=== PATIENT | male | born 1950 | race Caucasian/White ===

== ENCOUNTER 2022-08-15 09:25 | Emergency (ER) | payer MEDICARE, BC, SELFPAY ==
[2022-08-15 09:30] VITALS: BP 137/96; PULSE 79; RESP 16; TEMP 36.6; O2SAT 99; BMI 20.9
--- NOTE | 2022-08-15 09:50 | ED.GENADULT ---
HPI - General Adult General Chief complaint: Dental/Oral/Mouth Injury/Pain Stated complaint: Sore on roof of mouth Time Seen by Provider: 08/15/22 09:29 History of Present Illness HPI narrative: Patient is a pleasant 72 white male whose brother at age 38 of mouth cancer, and he had a lesion on the roof of his mouth for the last 5-7 days it has been painful. He wanted this checked. No other specific complaints. No fevers chills or other issues. He is generally very healthy Related Data Home Medications Medication Instructions Recorded Confirmed No Known Home Medications 08/15/22 08/15/22 Allergies Allergy/AdvReac Type Severity Reaction Status Date / Time No Known Drug Allergies Allergy Verified 08/15/22 09:34 Review of Systems Status of ROS: Reports: 6 or more systems reviewed and unremarkable except as noted in History and below PFSH PFS Social History Smoking Status: Never smoker Do you use any of these nicotine containing products: None Second hand tobacco smoke exposure: No How often do you have a drink containing alcohol: monthly or less AUDIT-C Alcohol total score: 1 Non-prescribed substance use: denies use service: No Exam Narrative: Exam Narrative: Objective: Vital signs show slightly elevated diastolic pressure He has got an aphthous ulcer on the roof of his mouth on the right side about half by 0.5 cm. Rest of the mouth is clear Const: Vital Signs, click to edit/add: Vital Signs - 24 hr 08/15/22 09:30 Temperature 97.9 F Pulse Rate [Pulse Oximeter] 79 Respiratory Rate 16 Blood Pressure [Le ft Upper Arm] 137/96 H Pulse Oximetry 99 Oxygen Delivery Me thod Room Air Course Vital Signs Vital signs: Initial Vital Signs Temperature 97.9 F 08/15/22 09:30 Temperature Source Temporal Artery Scan 08/15/22 09:30 Pulse Rate 79 08/15/22 09:30 Respiratory Rate 16 08/15/22 09:30 Blood Pressure 137/96 H 08/15/22 09:30 Blood Pressure Mean 109 H 08/15/22 09:30 Blood Pressure Position Sitting 08/15/22 09:30 Pulse Oximetry 99 08/15/22 09:30 Oxygen Delivery Method Room Air 08/15/22 09:30 Vital Signs Temperature 97.9 F 08/15/22 09:30 Pulse Rate 79 08/15/22 09:30 Respiratory Rate 16 08/15/22 09:30 Blood Pressure 137/96 H 08/15/22 09:30 Pulse Oximetry 99 08/15/22 09:30 Oxygen Delivery Method Room Air 08/15/22 09:30 Temperature 97.9 F 08/15/22 09:30 Pulse Rate 79 08/15/22 09:30 Respiratory Rate 16 08/15/22 09:30 Blood Pressure 137/96 H 08/15/22 09:30 Pulse Oximetry 99 08/15/22 09:30 Oxygen Delivery Method Room Air 08/15/22 09:30 Medical Decision Making MDM Narrative Medical decision making narrative: Patient has a painful ulcer on the roof of his mouth, appears to be an aphthous type ulcer. I would recommend observation over the next 2 weeks if it persists recommend ENT follow-up for potential biopsy and reassessment. He was comfortable this will follow up as directed. Discharge Plan Discharge Clinical Impression: Aphthous ulcer Patient Disposition: Home, Self-Care Condition: Stable Additional Instructions: Observe, diet as tolerated, Tylenol Advil as needed, recheck in 2 weeks with ENT if not improving. Activity Level: No Restrictions Discharge Diet: Regular Prescriptions: No Action No Known Home Medications Stand Alone Forms: [employer] Info Instructions
== END 2022-08-15 10:05 | disposition home or self-care (01) ==
LOC: ED 10:05
PROVIDERS: Emergency Provider Family Medicine
DX: K12.0 Recurrent oral aphthae (principal)
CPT/HCPCS: 99282; 99283

== ENCOUNTER 2024-06-12 11:41 | Emergency (ER) | payer MEDICARE, BC, SELFPAY ==
--- OUTSIDE RECORDS SUMMARY | 2024-06-12 11:43 | XMS_ITS | Clinical Summary ---
Author Organization [facility] Address [address] [place] [address] Care Team Providers Care Spring Assembler Supervisor Name Role Phone Hong Freitas DO Primary Care Provider [phone] Allergies No known active allergies Medications No known medications Active Problems Problem Noted Date Diagnosed Date Fracture of great toe, right, closed 11/09/2013 Diverticulosis Hemorrhoids Immunizations Immunization Administration Dates Next Due COVID-19 vaccine (Prior Knowledge 30mcg/0.3mL) P F MDV 08/06/2020,07/16/2020 Td (Age >=7 Years) 06/12/2003 Family History Medical History Relation Name Comments Cancer Brother 1 jaw and tongue Alzheimer's disease Father COPD Mother smoking Relation Name Status Comments Brother 1 (Age 38) Brother 2 Alive Brother 3 Alive Father (Age 83) Mother (Age 83) Social History Tobacco Use Types Packs/Day Years Used Date Smoking Tobacco: Never Smokeless Tobacco: Never Tobacco Cessation:Counseling Given: Yes Alcohol Use Standard Drinks/Week Comments Yes 0 (1 standard drink = 0.6 oz pur e alcohol) rare PHQ-2 Answer Date Recorded PHQ-2 Score 0 05/03/2018 Social Connections Answer Date Recorded Frequency of Communication with Friends and Fami ly Not on file 05/20/2021 Sex and Gender Information Value Date Recorded Sex Assigned at Not on file Legal Sex 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 Gender Identity Not on file Sexual Orientation Not on file 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 Not on file Not on file Obstetrics History Last Filed Vital Signs Vital Sign Reading Time Taken Comments Blood Pressure 130/87 10/19/2021 1:41 PM CDT Pulse 62 10/19/2021 1:41 PM CDT Temperature 36.7 C (98 F) 10/19/2021 1:41 PM CDT Respiratory Rate 14 10/19/2021 1:41 PM CDT Oxygen Saturation 98% 10/19/2021 1:41 PM CDT Inhaled Oxygen Concentration - - Weight 68.5 kg (151 lb) 05/20/2021 1:29 PM CDT Height 180.3 cm (5' 11) 03/02/2018 11:36 AM WEB DESIGNER Body Mass Index 21.06 03/02/2018 11:36 AM WEB DESIGNER Plan of Treatment Health Maintenance Due Date Last Done Comments Tdap 1961 Hepatitis C screening for ag e 18-79 1968 Pneumococcal series for age 50+ (1 of 1 - PCV) 2000 Zoster (shingles) series for age 50+ (1 of 2) 2000 Tetanus booster 06/11/2013 06/12/2003 Medicare Wellness for age 65+ 08/05/2015 BMI (ht and wt on same day) for age 18+ 03/02/2019 03/02/2018, 11/23/2016, 02/20/2016, Additional history exists Depression screening for age 12+ 03/02/2019 03/02/2018, 02/20/2016, 07/01/2015 Lipids for age 45-75 08/11/2019 08/10/2014, 06/18/19 12 Colonoscopy through age 75 08/29/201908/28, 08/28/2014, 12/17/2002 (Completed outside of [facility]) COVID-19 vaccine series (3 - 2023- season) 2023 08/06/2020, 07/16/2020 Influenza Vaccine (Season Ended) 2024 RSV vaccine for adults or (1 - 1-dose 75+ series) 2025 Procedures Procedure Name Priority Date/Time Associated Diagnosis Comments COLONOSCOPY 08/28/2014 10:36 AM CDT LIPID PANEL Routine 08/10/2014 9:57 AM CDT Routine general medical examination at a health care facility from Last 3 Months or Most Recently Relevant to Health Maintenance Results * COLONOSCOPY (08/28/2014 10:36 AM CDT) 08/28/2014 10:3 6 AM CDT Narrative 08/28/2014 10:36 AM CDT Endoscopy Patient Name: Alexis Mortensen Procedure Date: 08/28/2014 Gender: Male Date of : 1950 Admit Type: Outpatient Procedure: Colonoscopy Proceduralist: Giorgi Massey MD Referring MD: Abnre Silvestre Indications/Pre-Op Diagnosis: Colon cancer screening in patient at increased risk: Family history of colon polyps Medications: None Procedure Description: The patient had risks, benefits and alternatives explained to and gave informed consent. The patient had a stable cardiopulmonary status and judged an adequate candidate for conscious sedation. The endoscope was passed through the anus and advanced to the cecum, identified by appendiceal orifice and ileocecal valve. The colonoscopy was performed without difficulty. The patient tolerated the procedure well. The quality of the bowel preparation was good. Complications: No immediate complications. Estimated Blood Loss & Specimen: Estimated blood loss was minimal. Specimen collected: Yes and sent to Laboratory Findings: A few small-mouthed diverticula were found in the sigmoid colon and in the descending colon. A 3 mm polyp was found in the transverse colon. The polyp was sessile. The polyp was removed with a hot biopsy forceps. Resection and retrieval were complete. The exam was otherwise without abnormality. Impressions/Post-Op Diagnosis: - Diverticulosis in the sigmoid colon and in the descending colon. - One 3 mm polyp in the transverse colon. Resected and retrieved. - The examination was otherwise normal. Recommendation: - Follow up colonoscopy recommendations will depend on the pathology of the polyp. - A letter will be sent to the patient with pathology results and future screening colonoscopy recommendations. - High fiber diet daily. - Use citrus or orange sugared Metamucil one tablespoon PO daily indefinitely. Giorgi Massey MD 08/28/2014 11:21 AM This report has been signed electronically. Note Initiated On: 08/28/2014 10:36 AM Total Procedure Duration Time 0 hours 18 minutes 7 seconds Scope Withdrawal Time 0 hours 9 minutes 50 seconds Procedure Note Giorgi Massey MD - 08/28/2014 11:21 AM CDT Endoscopy Patient Name: Alexis Mortensen Procedure Date: 08/28/2014 Gender: Male Date of : 1950 Admit Type: Outpatient Procedure: Colonoscopy Proceduralist: Giorgi Massey MD Referring MD: Abner Silvestre Indications/Pre-Op Diagnosis: Colon cancer screening in patient atincreased risk: Family history of colon polyps Medications: None Procedure Description: The patient had risks, benefits and alternatives explained to andgave informed consent. The patient had a stable cardiopulmonary status and judged an adequate candidate for conscious sedation. The endoscope was passed through the anus and advanced to the cecum, identified by appendiceal orifice and ileocecal valve. Thecolonoscopy was performed without difficulty. The patient tolerated the procedure well. The quality of the bowel preparation was good. Complications: No immediate complications. Estimated Blood Loss & Specimen: Estimated blood loss was minimal. Specimen collected: Yes and sent to Laboratory Findings: A few small-mouthed diverticula were found in the sigmoid colon andin the descending colon. A 3 mm polyp was found in the transverse colon. The polyp wassessile. The polyp was removed with a hot biopsy forceps. Resection andretrieval were complete. The exam was otherwise without abnormality. Impressions/Post-Op Diagnosis: - Diverticulosis in the sigmoid colon and in the descending colon. - One 3 mm polyp in the transverse colon. Resected and retrieved. - The examination was otherwise normal. Recommendation: - Follow up colonoscopy recommendations will depend on the pathologyof the polyp. - A letter will be sent to the patient with pathology results andfuture screening colonoscopy recommendations. - High fiber diet daily. - Use citrus or orange sugared Metamucil one tablespoon PO daily indefinitely. Giorgi Massey MD 08/28/2014 11:21 AM This report has been signed electronically. Note Initiated On: 08/28/2014 10:36 AM Total Procedure Duration Time 0 hours 18 minutes 7 seconds Scope Withdrawal Time 0 hours 9 minutes 50 seconds Giorgi Massey MD PROCEDURE ORD Final Result * (ABNORMAL) LIPID PANEL (08/10/2014 9:57 AM CDT) CHOLESTEROL,TOTAL 225(H) 100 - 199 mg/dL 08/10/2014 8:03 PM CDT [facility] TRIGLYCERIDES 82 <150 mg/dL 08/10/2014 8:03 PM CDT [facility] HDL CHOLESTEROL 59 >40 mg/dL 5 8:03 PM CDT [facility] NON-HDL CHOLESTEROL 166(H) <145 mg/dl 08/10/2014 8:03 PM CDT [facility] CHOL/HDL RATIO 3.81 <4.50 08/10/2014 8:03 PM CDT [facility] LDL CHOLESTEROL 150(H) <=130 mg/dL 08/10/2014 8:03 PM CDT [facility] PATIENT STATUS NOT GIVEN 08/10/2014 8:03 PM CDT [facility] Blood specimen (specimen) BLOOD SPECIMEN / Unknown Venipuncture / Unknown 08/10/2014 9:57 AM CDT 08/10/2014 9:57 AM CDT us Abner Silvestre MD CHEMISTRY Final Resu lt [facility] [address] [place] [address], [place] from Last 3 Months or Most Recently Relevant to Health Maintenance Insurance MEDICARE [place] ONLY [facility] Advance Directives * Full Code (Latest Code Status on File) Date Activated Date Inactivated Comments 08/28/2014 10:22 AM 08/28/2014 3:44 PM Care Teams Spring Assembler Supervisor Relationship Specialty [place] [address] [place] [address] PCP - General Family Practice 10/19/21
--- OUTSIDE RECORDS SUMMARY | 2024-06-12 11:43 | XMS_ITS | Clinical Summary ---
Author Organization [facility] Address [address] [place] [address] Care Team Providers Care Vamp Throater Name Role Phone [facility] Primary Care Provider + Allergies No known active allergies Medications IBUPROFEN PO Take by mouth as needed for moderate pain Active amoxicillin-cla vulanate (AUGMENTIN) 875-125 MG per tabletIndicatio ns:Abscess Take 1 tablet by mouth every 12 hours 19 tablet 0 12/03/2015 Active Active Problems Problem Noted Date Diagnosed Date Thyroglossal duct infection 12/02/2015 Social History Tobacco Use Types Packs/Day Years Used Date Smoking Tobacco: Never Assessed Sex and Gender Information Value Date Recorded Sex Assigned at Not on file 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 Gender Identity Not on file Sexual Orientation Not on file Last Filed Vital Signs Vital Sign Reading Time Taken Comments Blood Pressure 139/90 12/18/2018 5:44 PM CDT Pulse 107 12/02/2015 10:11 AM CDT Temperature 36.8 C (98.3 F) 12/18/2018 5:44 PM CDT Respiratory Rate 16 12/18/2018 5:44 PM CDT Oxygen Saturation 98% 12/18/2018 5:44 PM CDT Inhaled Oxygen Concentration - - Weight 65.1 kg (143 lb 9.6 oz) 12/02/2015 3:02 P M CDT Height 180.3 cm (5' 11) 12/02/2015 3:02 PM CDT Body Mass Index 20.03 12/02/2015 3:02 PM CDT Plan of Treatment Not on file Insurance [place] Advance Directives For more information, please contact: [phone] * Full Code (Latest Code Status on File) Date Activated Date Inactivated Comments 12/03/2015 10:16 AM 12/18/2018 5:32 PM * Full Code Date Activated Date Inactivated Comments 12/02/2015 3:13 PM 12/03/2015 10:16 AM Care Teams Vamp Throater Relationship Specialty Start Date End Date [facility] [address] [place] [address] PCP - General 12/02/15
[2024-06-12 11:49] VITALS: BP 163/109; PULSE 66; RESP 16; TEMP 36.5; O2SAT 100; BMI 20.9
[2024-06-12 11:54] VITALS: BP 149/98
--- NOTE | 2024-06-12 12:39 | ED_ITS ---
HPI - General Adult General Date Seen: 06/12/24 Chief complaint: Groin Pain Stated complaint: left side groin pain Time Seen by Provider: 06/12/24 12:35 History of Present Illness HPI narrative: 73 yo generally healthy male presenting to the ER today for a painful swollen area in his left groin. He is generally healthy and is not currently on any meds. He has no allergies. He has been noting a problem with the left side of his groin for the past couple of months. He 1st noticed it a couple of months ago before he and his went to spend the winter in [place]. He attributes the onset of the symptoms to when he started working out with a personal [employer] ner, in March. His goal with the corporate trainer was to increase physical fitness and muscle mass. He notes that he has a painful lump in the left groin that slides out, typically when he is walking or doing other activity. It can be quite painful and sometimes burning or achy when it the bulge is present. Sometimes he has take ibuprofen for the pain. He notes that when he lays down the bulge always goes away in the pain resolves. The bulge is never present in the morning when he wakes up. It does pop out sometimes during the day. No other symptoms. No vomiting. No fever. No generalized abdominal pain. Bowel movements have been normal. Urination been normal. No pain in his penis or testicles. He has not noted any discoloration or redness or bruising of the bone. Related Data Home Medications ?Medication ?Instructions ?Recorded ?Confirmed No Known Home Medications 08/15/22 06/12/24 Allergies Allergy/AdvReac Type Severity Reaction Status Date / Time No Known Drug Allergies Allergy Verified 06/12/24 11:49 [facility] Social History Smoking Status: Never smoker Do you use any of these nicotine containing products: None Second hand tobacco smoke exposure: No How often do you have a drink containing alcohol: monthly or less AUDIT-C Alcohol total score: 1 Non-prescribed substance use: denies use service: No Exam Narrative: Exam Narrative: Constitutional: Appears well-developed and well-nourished. Alert. Conversant. Non toxic. HENT: Head: Atraumatic. Nose: Nose normal. Mouth/Throat: Oral mucosa is clear and moist. no trismus. Eyes: Conjunctivae normal. EOM normal. Pupils equal, round, and reactive to light. No scleral icterus. Neck: Normal range of motion. Neck supple. No tracheal deviation present. Cardiovascular: Normal rate, regular rhythm. No gallop. No friction rub. No murmur heard. Pulmonary/Chest: Effort normal. No stridor. No respiratory distress. No wheezes. No rales. No rhonchi . Abdominal: Soft. Bowel sounds normal. No distension. No mass. No tenderness. No rebound. No guarding. : Normal circumcised penis. Normal testicles and scrotum. There is a visible and palpable left inguinal mass present when the patient is standing up. When I reposition the patient to supine the bulge goes away. Exam consistent with a sliding left inguinal hernia. Musculoskeletal: RUE: Normal range of motion. No tenderness. No deformity LUE: Normal range of motion. No tenderness. No deformity RLE: Normal range of motion. No edema. No tenderness. No deformity LLE: Normal range of motion. No edema. No tenderness. No deformity Lymph: No inguinal adenopathy. Neurological: Alert and oriented to person, place, and time. Normal strength. CN II-VII intact. No sensory deficit. GCS eye subscore is 4. GCS verbal subscore is 5. GCS motor subscore is 6. Normal coordination Skin: Skin is warm and dry. No rash noted. No pallor. Normal capillary refill. Psychiatric: Normal mood. Normal affect. Const: Vital Signs, click to edit/add: Vital Signs - 24 hr 06/12/24 11:49 06/12/24 11:54 Temperature 97.7 F Pulse Rate [Pulse Oximeter] 66 Respiratory Rate 16 Blood Pressure [Ri t Upper Arm] 163/109 H 149/98 H Pulse Oximetry 100 Oxygen Delivery Me thod Room Air Course Vital Signs Vital signs: Initial Vital Signs Temperature 97.7 F 06/12/24 11:49 Temperature Source Temporal Artery Scan 06/12/24 11:49 Pulse Rate 66 06/12/24 11:49 Pulse Rhythm Regular 06/12/24 11:49 Pulse Strength 3+ Normal 06/12/24 11:49 Respiratory Rate 16 06/12/24 11:49 Blood Pressure 163/109 H 06/12/24 11:49 Blood Pressure Mean 127 H 06/12/24 11:49 Blood Pressure Position Sitting 06/12/24 11:49 Pulse Oximetry 100 06/12/24 11:49 Oxygen Delivery Method Room Air 06/12/24 11:49 Vital Signs Temperature 97.7 F 06/12/24 11:49 Pulse Rate 66 06/12/24 11:49 Respiratory Rate 16 06/12/24 11:49 Blood Pressure 163/109 H 06/12/24 11:49 Pulse Oximetry 100 06/12/24 11:49 Oxygen Delivery Method Room Air 06/12/24 11:49 Temperature 97.7 F 06/12/24 11:49 Pulse Rate 66 06/12/24 11:49 Respiratory Rate 16 06/12/24 11:49 Blood Pressure 149/98 H 06/12/24 11:54 Pulse Oximetry 100 06/12/24 11:49 Oxygen Delivery Method Room Air 06/12/24 11:49 Medical Decision Making MDM Narrative Medical decision making narrative: Very pleasant 73-year-old male presenting to the ER today with a couple month history of intermittent left groin pain/mass. Differential here is broad including testicular pathology, kidney stone, hematoma, groin abscess, femoral artery aneurysm, inguinal hernia, kidney stone, among others. History and exam are highly suggestive for a sliding left inguinal hernia. At this point I do not think the patient needs laboratory workup, urinalysis, CT imaging. Discussed need for surgical evaluation and likely surgical correction. At this point there is no evidence for any incarceration or strangulation or associated obstruction requiring emergent surgical intervention. Patient is pleased to hear this. He will call the [facility] to arrange an ER follow-up visit with plans for a outpatient surgical repair. Precautions for return to the ER reviewed. Discharge Plan Discharge Clinical Impression: Hernia, inguinal, left Patient Disposition: Home, Self-Care Condition: Stable Instructions: Inguinal Hernia (ED) Additional Instructions: As we discussed, please come back to the ER right away if you have worsening or severe pain, generalized abdominal pain or vomiting, fever, or if you have a hernia that is bulged out that you cannot get to slide back in place. Please call the [facility] to arrange is ER follow-up appointment with the general surgeons (to occur as soon as you are able). Call [phone] Prescriptions: No Action No Known Home Medications Follow Up/Referrals: Provider,Not a Local [Primary Care Provider] - Stand Alone Forms: [employer] Info Instructions
--- OUTSIDE RECORDS SUMMARY | 2024-06-12 13:24 | XMS_ITS | Clinical Summary ---
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 Gender Identity Not on file Sexual Orientation [...] Not on file Insurance [place] Advance Directives For more information, please contact: [phone] * Full Code (Latest Code Status on File) Date Activated Date Inactivated Comments 12/03/2015 10:16 AM 12/18/2018 5:32 PM * Full Code Date Activated Date Inactivated Comments 12/02/2015 3:13 PM 12/03/2015 10:16 AM Care Teams Die Repairer Stamping Relationship Specialty Start Date End Date [facility] [address] [place] [address] PCP - General 12/02/15
== END 2024-06-12 13:23 | disposition home or self-care (01) ==
LOC: ED 13:22
PROVIDERS: Emergency Provider Emergency Medicine
DX: K40.90 Unilateral inguinal hernia, without obstruction or gangrene, not specified as recurrent (principal)
CPT/HCPCS: 99282; 99283

== ENCOUNTER 2024-06-20 06:19 | Day surgery (SDC) | payer MEDICARE, BC, SELFPAY ==
[2024-06-20] VITALS (13 sets, daily range): BP systolic 122–153; BP diastolic 69–103; PULSE 56–83; RESP 12–22; TEMP 36.1–37.1; O2SAT 97–100; BMI 21.7
[2024-06-20] MEDS: LACTATED RINGERS 1000 ML 1,000 ML 100 ML IV (06:55)
[2024-06-20] MEDS: SODIUM CHLORIDE 0.9 % (FLUSH) 10 ML SYRINGE IVF (06:55)
--- NOTE | 2024-06-20 07:16 | W.PM.H&PU ---
History & Physical Update History & Physical Update H&P Reviewed and patient assessed: No changes noted
--- NOTE | 2024-06-20 07:19 | P.GSOP_ITS ---
Operative Note Date of procedure: 06/20/24 Pre-op diagnosis: 1. Symptomatic left inguinal hernia. Post-op diagnosis: 1. Indirect left inguinal hernia. Type of Procedure: 1. Laparoscopic left inguinal hernia repair with mesh. Indications: 73-year-old male presented to clinic for evaluation of left inguinal hernia. 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 He then noticed that the pain was more prominent when he was walking. Patient described the pain as burning. The pain was usually not present in the morning but by the end of the day he felt increased pain. Patient was seen in the emergency room for evaluation of this hernia and hernia was found to be reducible. On clinical exam there was a noticeable small left inguinal bulge that was reducible. Given patient's clinical history and his physical exam, laparoscopic left inguinal hernia repair was recommended. The procedure was discussed in detail. The risks associated procedure including infection, bleeding, injury to preperitoneal organs, nerve pain, and hernia recurrence were all discussed with the patient, and he agreed to proceed. Procedure Description: After discussing the risks and benefits of the procedure, the patient signed informed consent.? The operative site was marked and the patient was brought to the operating room and placed on the operating table in supine position.? Care was taken to pad the patient's pressure points.?? The patient was then intubated by anesthesia.?? The operative site was then prepped and draped in the usual sterile fashion.? A time-out was then performed. An infraumbilical skin incision was made with a scalpel and subcutaneous tissues were dissected with electrocautery. Anterior sheath was incised with electrocautery and rectus muscle was retracted laterally. A 12 mm spacemaker dissector system was introduced into the incision and advanced over the posterior sheath. Preperitoneal space was dissected with manually insufflating air under direct visualization. Once the tissues were dissected, the balloon was deflated and removed.? A laparoscopic balloon was placed into preperitoneal space and balloon was inflated. Preperitoneal space was insufflated with air. No bleeding was identified upon examination of preperitoneal space. We then placed two 5 mm ports suprapubically under direct visualization. ? The preperitoneal tissues were bluntly dissected with graspers.? The pubic bone was identified and? cleared from preperitoneal tissue.? Bleeding was seen from the vein overlying the pubic bone. This was controlled with cautery and 5 mm clips.? Inferior epigastrics on left?side were retracted towards the abdominal wall.?? Spermatic cord? was identified and dissected circumferentially.? This was done bluntly.?The indirect hernia sac was noted and peritoneum was dissected bluntly from the spermatic cord. The hernia sac was then reduced and reflected cranially.?? When adequate space was developed for mesh placement, a large left- sided Parietex? mesh was used and positioned over the spermatic cord. The mesh was tacked medially and laterally with?tacks.? Additional local anesthetic was injected directly into pre-peritoneal space. ? The space was deflated under direct visualization and mesh appeared to be still lying in a good position. The ports were then removed. Anterior sheath was then closed with a running 0-0 vicryl suture. Skin was closed with 4-0 monocryl using subcuticular stitch. Steri strips were applied over the laparoscopic?incisions. ? All counts were correct at the end of the case. Patient tolerated the procedure well and was transferred to PACU without any complications. Findings: Moderately sized indirect left inguinal hernia repaired with Bard mesh. Implants: Bard 3DMax mesh. Anesthesia: GETA Surgeon: Garland Ferrell MD Estimated blood loss (mL): 5 Condition: stable Disposition: PACU
[2024-06-20] MEDS: CEFAZOLIN 1 GM inj IVP (07:30)
--- NOTE | 2024-06-20 07:31 | P.ANES_ITS ---
Anesthesia Charges Start Date/Time Anesthesia Start Date: 06/20/24 Anesthesia Start Time: 07:20 Stop Date/Time Anesthesia Stop Date: 06/20/24 Anesthesia Stop Time: 08:33 Summary Extremes of Age - Over 70 or under 1: BANQUET CHEF Coding CPT Codes CPT Codes: ANESTH REPAIR OF HERNIA - 45267 ([id number]) P1 - NORMAL HEALTHY PATIENT, QK - CHORE WORKER 2-4 CNCRNT ANES PROC, QX - BANQUET CHEF SVC W/ MD MED DIRECTION Additional Codes: Summary - Extremes of Age - Over 70 or under 1: BANQUET CHEF ([id number])
--- NOTE | 2024-06-20 07:31 | W.ANESCHARGE ---
Anesthesia Charges Start Date/Time Anesthesia Start Date: 06/20/24 Anesthesia Start Time: 07:20 Stop Date/Time Anesthesia Stop Date: 06/20/24 Anesthesia Stop Time: 08:33 Summary Extremes of Age - Over 70 or under 1: PERINATAL SOCIAL WORKER Coding CPT Codes CPT Codes: ANESTH REPAIR OF HERNIA - 10911 ([id number]) P1 - NORMAL HEALTHY PATIENT, QK - PROVIDER RELATIONS MANAGER 2-4 CNCRNT ANES PROC, QX - PERINATAL SOCIAL WORKER SVC W/ MD MED DIRECTION Additional Codes: Summary - Extremes of Age - Over 70 or under 1: PERINATAL SOCIAL WORKER ([id number])
[2024-06-20] MEDS: BUPIVACAINE 0.25% 30 ML INJECTION (08:15)
[2024-06-20] MEDS: LIDOCAINE 1%-EPI 1:100,000 20 ML INFILTRATI (08:15)
--- NOTE | 2024-06-20 08:34 | P.ANES_ITS ---
Anesthesia Charges Start Date/Time Anesthesia Start Date: 06/20/24 Anesthesia Start Time: 07:20 Stop Date/Time Anesthesia Stop Date: 06/20/24 Anesthesia Stop Time: 08:33 Summary Extremes of Age - Over 70 or under 1: MDA Coding CPT Codes CPT Codes: ANESTH SURGERY OF ABDOMEN - 15395 ([id number]) P1 - NORMAL HEALTHY PATIENT, QK - SOCIALLY RESPONSIBLE INVESTMENT ADVISER 2-4 CNCRNT ANES PROC, QX - HOME SERVICE DEMONSTRATOR SVC W/ MD MED DIRECTION Additional Codes: Summary - Extremes of Age - Over 70 or under 1: MDA ([id number])
--- NOTE | 2024-06-20 08:34 | W.ANESCHARGE ---
Anesthesia Charges Start Date/Time Anesthesia Start Date: 06/20/24 Anesthesia Start Time: 07:20 Stop Date/Time Anesthesia Stop Date: 06/20/24 Anesthesia Stop Time: 08:33 Summary Extremes of Age - Over 70 or under 1: MDA Coding CPT Codes CPT Codes: ANESTH SURGERY OF ABDOMEN - 44381 ([id number]) P1 - NORMAL HEALTHY PATIENT, QK - PACKAGING ASSOCIATE 2-4 CNCRNT ANES PROC, QX - HUMAN RESOURCES ASSISTANT MANAGER SVC W/ MD MED DIRECTION Additional Codes: Summary - Extremes of Age - Over 70 or under 1: MDA ([id number])
--- NOTE | 2024-06-20 23:13 | PC.NURSE ---
REVIEWED PTS CHART CALLED WITH SOME POST OP QUESTIONS. ALL QUESTIONS ANSWERED REGARDING PAIN MGMT & MEDICATIONS.
== END 2024-06-20 10:35 | disposition home or self-care (01) ==
PROVIDERS: Visit Provider Surgery
PROC: (CPT 49650; principal; 2024-06-20 07:30)
DX: K40.90 Unilateral inguinal hernia, without obstruction or gangrene, not specified as recurrent (principal)
CPT/HCPCS: 49650; 00830; 00840; 00860; 99100; C1781; J0330; J0665; J0690; J1100; J1171; J2405; J2704; J2710; J3010; J3490; J7120

== ENCOUNTER 2024-12-25 19:20 | Emergency (ER) | payer MEDICARE, BC, SELFPAY ==
--- OUTSIDE RECORDS SUMMARY | 2024-12-25 19:23 | XMS_ITS | Clinical Summary ---
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 Gender Identity Not on file Sexual Orientation Not on file Occupation Industry Job Start Date Job End Date [employer] Not on file Not on file Not [...] 180.3 cm (5' 11) 03/02/2018 11:36 AM SENIOR PREMIUM AUDITOR Body Mass Index 21.06 03/02/2018 11:36 AM SENIOR PREMIUM AUDITOR Plan of Treatment Health Maintenance Due Date Last Done Comments Hepatitis C screening for age 18-79 1968 Pneumococcal series for age 50+ [...] 75 08/29/201908/28, 08/28/2014, 12/17/2002 ([facility] COVID-19 vaccine series (3 2024- season) 2024 08/06/2020, 07/16/2020 Influenza Vaccine (#1) 2024 RSV vaccine for adults or (1 - 1-dose 75+ series) 2025 Hepatitis B series for 19+ Aged Out N o longer eligible based on patient's age to complete this topic Procedures Procedure Name Priority Date/Time Associated Diagnosis [...] Time 0 hours 9 minutes 50 seconds us Giorgi Massey MD PROCEDURE ORD Final Result * (ABNORMAL) LIPID PANEL (08/10/2014 9:57 AM CDT) CHOLESTEROL,TOTAL 225(H) 100 - 199 mg/dL 08/10/2014 8:03 PM CDT [facility] TRIGLYCERIDES 82 <150 mg/dL 08/10/2014 8:03 PM CDT [facility] HDL CHOLESTEROL 59 >40 mg/dL 5 8:03 PM CDT [facility] NON-HDL CHOLESTEROL 166(H) <145 mg/dl 08/10/2014 8:03 PM CDT [facility] CHOL/HDL RATIO 3.81 <4.50 08/10/2014 8:03 PM CDT [facility] LDL CHOLESTEROL 150(H) <=130 mg/dL 08/10/2014 8:03 PM CDT [facility] PATIENT STATUS NOT GIVEN 08/10/2014 8:03 PM CDT [facility] Blood specimen (specimen) BLOOD SPECIMEN / Unknown Venipuncture / Unknown 08/10/2014 9:57 AM CDT 08/10/2014 9:57 AM CDT us Abner Silvestre MD CHEMISTRY Final Resu lt [facility] [address] [place] [address], [place] from Last 3 Months or Most Recently Relevant to Health Maintenance Insurance MEDICARE PB ONLY [facility] Advance Directives * Full Code (Latest Code Status on File) Date Activated Date Inactivated Comments 08/28/2014 10:22 AM 08/28/2014 3:44 PM Care Teams Sales Office Manager Relationship Specialty [place] [address] [place] [address] PCP - General Family Practice 10/19/21
--- OUTSIDE RECORDS SUMMARY | 2024-12-25 19:23 | XMS_ITS | Patient Health Record ---
Author Organization [facility] Address [address] [place] [address] Care Team Providers Care Cloth Colorer Name Role Phone David Magana Primary Care Provider BARBARA Bartholomew Unavailable [phone] Reason For Referral No Information Social History Social History : Social Info Question Answer Notes How often do you consume alcohol? Answer: never Recreational drug use Social Info Question Answer Notes Did you ever use recreational drugs? Answer: No Problems Problem Type SNOMED Code ICD Code Onset Dates Problem Status W/U Status Risk Notes Problem Otalgia of right ear (finding) (9165106750) Otalgia, right ear (H92.01) Active confirmed Problem Throat discomfort (227522983) Throat discomfort (R07.0) Active confirmed Problem Mass of neck (278134596) Neck mass (R22.1) Active confirmed Plan Of Treatment No Information Insurance Providers Payer Name Payer Address Payer Phone Subscriber Number Group Number Insured Name Patient Relationship to Insured Coverage Start Date Coverage End Date [employer] [place] [employer] [address] [address] [place], [place] [id number] Alexis Valles Self - patient is the insured
--- OUTSIDE RECORDS SUMMARY | 2024-12-25 19:23 | XMS_ITS | Clinical Summary ---
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
[2024-12-25 19:49] VITALS: BP 139/87; PULSE 98; RESP 16; TEMP 37.3; O2SAT 99; BMI 21.5
[2024-12-25 20:25] LABS: Strep A DNA Probe* NOT DETECTED (Not Detectd)
[2024-12-25 20:38] LABS: PCR FLU A Negative PCR FLU A (Negative); PCR FLU B Negative PCR FLU B (Negative); PCR RSV Negative PCR RSV (Negative); SARS PCR* POSITIVE SARS-CoV-2 (Negative)
--- NOTE | 2024-12-25 21:25 | ED.GENADULT ---
HPI - General Adult General Chief complaint: Cough Stated complaint: covid symptoms Time Seen by Provider: 12/25/24 21:14 History of Present Illness HPI narrative: This 74-year-old male comes in reporting 3 days of upper respiratory symptoms including cough and sore throat. He does not report any fevers. He is otherwise in good health. Related Data Home Medications ?Medication ?Instructions ?Recorded ?Confirmed No Known Home Medications 12/25/24 12/25/24 Allergies Allergy/AdvReac Type Severity Reaction Status Date / Time No Known Drug Allergies Allergy Verified 07/05/24 12:57 Review of Systems Status of ROS: Reports: 10 or more systems reviewed and unremarkable except as noted in History and below Narrative: Constitutional: No fevers, no weight gain or loss. Eyes: No discharge. No vision changes. HENT: No congestion, no ear pain. He reports a sore throat. Cardiovascular: No chest pain, no palpitations. Respiratory: No shortness of breath, no wheezes. He reports a cough. Gastrointestinal: No abdominal pain, no vomiting, no diarrhea. Genitourinary: No dysuria, no hematuria. Musculoskeletal: Normal range of motion. Skin: No rashes, no pruritis. Neurological: No dizziness, weakness, sensory change, speech change. Endo/Heme/Allergies: No bruising or bleeding. No polydipsia. Pysch: no suicidality, no anxiety, no insomnia. All other systems reviewed and are negative. [facility] (Updated 07/05/24 @ 15:26 by Garland Ferrell MD) S/P left inguinal hernia repair ?Z98.890 - Other specified postprocedural states (ICD-10) ?Z87.19 - Personal history of other diseases of the digestive system (ICD-10) Hx of vasectomy ?Z98.52 - Vasectomy status (ICD-10) Family History (Updated 06/15/24 @ 15:04 by Malinda Jarrett PA-C) Mother Osteoporosis Father Dementia Son Diverticulitis Social History (Updated 06/16/24 @ 07:48 by Harini Hicks ~ MARK) Narrative: . 2 adult children Never smoker Very rare alcohol use Patient denies smoking and rarely drinks alcohol. He is retired. What is your current living situation?: I presently have a place to live Problems where you live: no known problems In the past 12 months, utilities in danger of being shut off: no In past 12 months, lack of transportation kept you from medical appts, meetings, work, or getting things needed for daily living: no In the past 12 mos, have been you worried that your food would run out before you had money to buy more?: never true In the past 12 mos, the food you bought just didn't last and you didn't have money to buy more?: never true Smoking Status: Never smoker Do you use any of these nicotine containing products: None Second hand tobacco smoke exposure: No How often do you have a drink containing alcohol: monthly or less Alcohol type: beer How many standard drinks containing alcohol do you have on a typical day: 1 or 2 How often do you have six or more drinks on one occasion: Never AUDIT-C Alcohol total score: 1 Non-prescribed substance use: denies use Caffeine: Yes How often does anyone, including family, friends and others, physically hurt you: never How often does anyone, including family, friends and others, insult or talk down to you: never How often does anyone, including family, friends and others, threaten you with harm: never How often does anyone, including family, friends and others, scream or curse at you: never service: No Exam Narrative: Exam Narrative: Constitutional: Well-developed, well-nourished, no acute distress. HEENT: Normocephalic, atraumatic. Pharyngeal erythema without exudate or swelling. Neck: Normal range of motion. Nontender. Supple. Heart: Regular. No murmurs. Normal rate. Intact distal pulses. Lungs: Clear to auscultation. No chest discomfort. No wheezes, rhonchi, or rales. Abdomen: Normal bowel sounds. Nontender. No rebound tenderness. Genitalia: Deferred. Back: No midline tenderness. Normal range of motion. Extremities: Normal range of motion. No injury. Skin: Intact. No rash. Warm. No erythema or pallor. Neurologic: No altered sensation. No weakness. Alert and oriented. Psychiatric: No suicidality. No anxiety or depression. No insomnia. Nursing notes and vitals signs are reviewed. Const: Vital Signs, click to edit/add: Vital Signs - 24 hr 12/25/24 19:49 Temperature 99.2 F Pulse Rate [Pulse Oximeter] 98 Respiratory Rate 16 Blood Pressure [Ri t Upper Arm] 139/87 Pulse Oximetry 99 Oxygen Delivery Me thod Room Air Course Vital Signs Vital signs: Initial Vital Signs Temperature 99.2 F 12/25/24 19:49 Temperature Source Temporal Artery Scan 12/25/24 19:49 Pulse Rate 98 12/25/24 19:49 Respiratory Rate 16 12/25/24 19:49 Blood Pressure 139/87 12/25/24 19:49 Blood Pressure Mean 104 12/25/24 19:49 Blood Pressure Position Sitting 12/25/24 19:49 Pulse Oximetry 99 12/25/24 19:49 Oxygen Delivery Method Room Air 12/25/24 19:49 Vital Signs Temperature 99.2 F 12/25/24 19:49 Pulse Rate 98 12/25/24 19:49 Respiratory Rate 16 12/25/24 19:49 Blood Pressure 139/87 12/25/24 19:49 Pulse Oximetry 99 12/25/24 19:49 Oxygen Delivery Method Room Air 12/25/24 19:49 Temperature 99.2 F 12/25/24 19:49 Pulse Rate 98 12/25/24 19:49 Respiratory Rate 16 12/25/24 19:49 Blood Pressure 139/87 12/25/24 19:49 Pulse Oximetry 99 12/25/24 19:49 Oxygen Delivery Method Room Air 12/25/24 19:49 Medical Decision Making MDM Narrative Medical decision making narrative: This patient comes in with upper respiratory symptoms as described above. Nasal pharyngeal swab returns positive for COVID. I did review guidelines for treatment of COVID and given this patient's age and lack of comorbidities it is recommended that he receive supportive cares only. The patient did receive an oral dose of dexamethasone 10 mg and I provided Instymed tablets of Tylenol 3 for additional symptomatic relief. Lab Data Labs: Lab Results 12/25/24 Range/Units 19:48 SARS-CoV-2 (PCR) POSITIVE SARS-CoV-2 A (Negative) Influenza Type A (PCR) Negative PCR FLU A (Negative) Influenza Type B (PCR) Negative PCR FLU B (Negative) RSV (PCR) Negative PCR RSV (Negative) Group A Strep DNA NOT DETECTED (Not Detectd) Discharge Plan Discharge Clinical Impression: COVID-19 Patient Disposition: Home, Self-Care Condition: Stable Additional Instructions: Use [id number] medicines as needed and directed. Use Tylenol 3 as prescribed and needed also. Follow up with MD return if worsening. Prescriptions: No Action No Known Home Medications Follow Up/Referrals: Provider,Not a Local [Primary Care Provider, Family Practice] Stand Alone Forms: [employer] Info Instructions
== END 2024-12-25 21:42 | disposition home or self-care (01) ==
LOC: ED 21:36
PROVIDERS: Emergency Provider Emergency Medicine Emergency Medical Services
DX: U07.1 COVID-19 (principal)
CPT/HCPCS: 87631; 87651; 99283; 99284; J1100